=== PATIENT | male | born 1970 | race Caucasian/White ===

== ENCOUNTER 2019-07-16 11:16 | Inpatient (IN) | payer MEDICAID, OTHER ==
[~2019-07-16] VITALS: Ht 180.3 cm; Wt 82.5 kg
[~2019-07-16 11:16] MED LIST: DARU1TAB PO; EMTR1TAB8 PO; LISI-662 PO; LURA40 PO; SULF-168 PO; VALA500T38 PO; VENL-67 PO; VITAMIN D PO
[2019-07-16 11:49] LABS: BASOPHILS % (AUTO) 0.5 % (0.0-2.0); EOSINOPHILS % (AUTO) 2.8 % (1.0-6.0); HEMATOCRIT 43.7 % (41-53); HEMOGLOBIN 14.6 g/dL (13.5-17.5); LYMPHOCYTES # (AUTO) 1.1 K/uL (1.0-4.8); MEAN CORPUSCULAR HEMOGLOBIN 30.4 pg (26.0-34.0); MEAN CORPUSCULAR HGB CONC 33.3 G/dL (31.0-37.0); MEAN CORPUSCULAR VOLUME 91 fL (80-100); MONOCYTES # (AUTO) 0.3 K/uL (0.1-1.0); MONOCYTES % (AUTO) 13.5 % (2.0-9.0); NEUTROPHILS # (AUTO) 0.9 K/uL (1.8-7.7); NEUTROPHILS % (AUTO) 36.2 % (40.0-70.0); PLATELET COUNT (AUTO) 198 K/uL (150-450); RED BLOOD CELL COUNT(AUTO) 4.79 MIL/uL (4.50-5.90); RED CELL DISTRIBUTION WIDTH 14.2 % (11.5-14.5)
[2019-07-16 12:01] LABS: ALANINE AMINOTRANSFERASE 145 U/L (12-78); ALKALINE PHOSPHATASE 53 U/L (46-116); ANION GAP 10 mmol/L (8-16); ASPARTATE AMINOTRANSFERASE 92 U/L (15-37); BILIRUBIN,TOTAL 0.7 mg/dL (0.1-1.0); CALCIUM, TOTAL 9.2 mg/dL (8.8-10.5); CARBON DIOXIDE 26 mmol/L (22-29); CHLORIDE 98 mmol/L (98-107); GLOMERULAR FILTR. RATE CALC > 60 mL/min (>60); GLUCOSE,RANDOM 79 mg/dL (70-110); POTASSIUM 3.7 mmol/L (3.5-5.1); SODIUM SERUM 134 mmol/L (136-145); TOTAL PROTEIN, SERUM 8.1 g/dL (6.4-8.2); UREA NITROGEN, BLOOD 15 mg/dL (7-18)
[2019-07-16 12:22] LABS: AMPHET/METH SCREEN,URINE POSITIVE (NEGATIVE); BARBITURATE SCREEN, URINE NEGATIVE (NEGATIVE); BENZODIAZEPINES SCREEN,URINE NEGATIVE (NEGATIVE); CANNABINOID SCREEN,URINE POSITIVE (NEGATIVE); COCAINE SCREEN,URINE NEGATIVE (NEGATIVE); METHADONE SCREEN, URINE NEGATIVE (NEGATIVE); OPIATE SCREEN,URINE NEGATIVE (NEGATIVE)
[2019-07-16 12:24] LABS: PHENCYCLIDINE SCREEN,URINE NEGATIVE (NEGATIVE)
[2019-07-16 12:36] LABS: APPEARANCE,URINE CLEAR (CLEAR); BILIRUBIN,URINE NEGATIVE (NEGATIVE); GLUCOSE, URINE (UA) NEGATIVE (NEGATIVE); KETONES,URINE NEGATIVE (NEGATIVE); LEUKOCYTE ESTERASE ,URINE NEGATIVE (NEGATIVE); NITRATE,URINE NEGATIVE (NEGATIVE); OCCULT BLOOD,URINE NEGATIVE (NEGATIVE); PROTEIN,URINE NEGATIVE (NEGATIVE)
[2019-07-16] MEDS ORDERED: MAG HYDROX/AL HYDROX/SIMETH ES 30 ML SUSPENSION UDCUP PO PRN (13:15)
[2019-07-16] MEDS ORDERED: GuaiFENesin/D-METHORPHAN [SUGAR-FREE] 200-20MG/10 ML SYRUP UDCUP PO PRN (13:15)
[2019-07-16] MEDS ORDERED: QUEtiapine FUMARATE 100 MG TABLET PO PRN (13:15)
[2019-07-16] MEDS ORDERED: MAGNESIUM HYDROXIDE SUSPENSION 30 ML UDCUP PO PRN (13:15)
[2019-07-16] MEDS ORDERED: PROMETHAZINE HCL 25 MG TABLET PO PRN (13:15)
[2019-07-16] MEDS ORDERED: ACETAMINOPHEN 325 MG TABLET PO PRN (13:15)
[2019-07-16] MEDS ORDERED: HydrOXYzine PAMOATE 50 MG CAPSULE PO PRN (13:15)
[2019-07-16] MEDS ORDERED: LOPERAMIDE HCL 2 MG CAPSULE PO PRN (13:15)
[2019-07-16] MEDS ORDERED: CHOL50004 PO (13:16)
[2019-07-16 20:05] VITALS: BP 153/89
[2019-07-16] MEDS: THIAMINE HCL 100 MG TABLET PO SCH (20:33)
[2019-07-16] MEDS ORDERED: QUEtiapine FUMARATE 100 MG TABLET PO SCH (21:00)
[2019-07-16] MEDS: ZOLPIDEM TARTRATE 10 MG TABLET PO PRN (21:05)
[2019-07-16] MEDS ORDERED: CloNIDine HCL 0.1 MG TABLET PO PRN (22:00)
[2019-07-17] MEDS: DARUNAVIR ETHANOLATE 800 MG TABLET PO SCH (06:44)
[2019-07-17] MEDS ORDERED: VENLAFAXINE HCL 75 MG ER CAPSULE PO SCH (09:00)
[2019-07-17] MEDS: FOLIC ACID 1 MG TABLET PO SCH (09:19)
[2019-07-17] MEDS: THIAMINE HCL 100 MG TABLET PO SCH ×2 (09:19→17:15)
[2019-07-17] MEDS: EMTRICITABINE/TENOFOVIR 200-300 MG TABLET PO SCH (09:19)
[2019-07-17] MEDS: NALTREXONE HCL 50 MG TABLET PO SCH (09:19)
[2019-07-17] MEDS: MULTIVITAMINS WITH MINERALS, THERAPEUTIC TABLET PO SCH (09:20)
[2019-07-17] MEDS: ValACYclovir HCL 500 MG TABLET PO SCH (09:20)
[2019-07-17] MEDS: LISINOPRIL 20 MG TABLET PO SCH (09:22)
[2019-07-17] MEDS: SULFAMETHOX/TRIMETH DS 800-160 MG/TABLET PO SCH (09:22)
[2019-07-17 11:19] LABS: GLUCOMETER DEV NAME(LOC) 3E.I; GLUCOSE,POINT OF CARE 126 MG/DL (70-110)
[2019-07-17 11:55] LABS: CHOL/HDL RATIO 3.9 (4.2-7.3); FREE T4 (FREE THYROXINE) 1.01 ng/dL (0.76-1.46); THYROID STIMULATING HORMONE 0.75 uIU/mL (0.36-3.74)
[2019-07-17] MEDS ORDERED: OLANZapine 5 MG RAPDIS TABLET PO PRN (18:30)
[2019-07-17] MEDS: GABAPENTIN 300 MG CAPSULE PO SCH (21:00)
[2019-07-17] MEDS ORDERED: OLANZapine 5 MG RAPDIS TABLET PO SCH (21:00)
[2019-07-17] MEDS: ZOLPIDEM TARTRATE 10 MG TABLET PO PRN (22:37)
[2019-07-18] MEDS: DARUNAVIR ETHANOLATE 800 MG TABLET PO SCH (06:47)
[2019-07-18 08:50] VITALS: BP 124/68
[2019-07-18] MEDS: GABAPENTIN 300 MG CAPSULE PO SCH ×2 (09:00→13:00)
[2019-07-18] MEDS: NALTREXONE HCL 50 MG TABLET PO SCH (09:00)
[2019-07-18] MEDS: MULTIVITAMINS WITH MINERALS, THERAPEUTIC TABLET PO SCH (09:00)
[2019-07-18] MEDS: THIAMINE HCL 100 MG TABLET PO SCH (09:00)
[2019-07-18] MEDS: EMTRICITABINE/TENOFOVIR 200-300 MG TABLET PO SCH (09:00)
[2019-07-18] MEDS ORDERED: DULoxetine HCL 20 MG CAPSULE PO SCH (09:00)
[2019-07-18] MEDS: SULFAMETHOX/TRIMETH DS 800-160 MG/TABLET PO SCH (09:00)
[2019-07-18] MEDS: LISINOPRIL 20 MG TABLET PO SCH (09:00)
[2019-07-18] MEDS: ValACYclovir HCL 500 MG TABLET PO SCH (09:00)
[2019-07-18] MEDS: FOLIC ACID 1 MG TABLET PO SCH (09:00)
[2019-07-18 17:00] VITALS: BP 133/82
[2019-07-18] MEDS: GABAPENTIN 400 MG CAPSULE PO SCH ×2 (17:03→20:15)
[2019-07-18] MEDS: LORazepam 2 MG TABLET PO PRN (17:03)
[2019-07-18] MEDS ORDERED: THIAMINE HCL 100 MG TABLET PO SCH (21:00)
[2019-07-18] MEDS ORDERED: FOLIC ACID 1 MG TABLET PO SCH (21:00)
[2019-07-18] MEDS ORDERED: NALTREXONE HCL 50 MG TABLET PO SCH (21:00)
[2019-07-18] MEDS ORDERED: MULTIVITAMINS WITH MINERALS, THERAPEUTIC TABLET PO SCH (21:00)
[2019-07-19] MEDS: DARUNAVIR ETHANOLATE 800 MG TABLET PO SCH (06:42)
[2019-07-19] MEDS ORDERED: DULoxetine HCL 20 MG CAPSULE PO SCH ×3 (09:00→21:00)
[2019-07-19 09:50] VITALS: BP 123/74
[2019-07-19] MEDS: GABAPENTIN 400 MG CAPSULE PO SCH ×2 (11:21→13:45)
[2019-07-19] MEDS: LISINOPRIL 20 MG TABLET PO SCH (11:21)
[2019-07-19] MEDS: ValACYclovir HCL 500 MG TABLET PO SCH (11:21)
[2019-07-19] MEDS: EMTRICITABINE/TENOFOVIR 200-300 MG TABLET PO SCH (11:21)
[2019-07-19] MEDS: LORazepam 2 MG TABLET PO PRN (11:21)
[2019-07-19] MEDS: SULFAMETHOX/TRIMETH DS 800-160 MG/TABLET PO SCH (11:22)
[2019-07-19] MEDS ORDERED: DULO20CA30 PO (13:29)
[2019-07-19] MEDS ORDERED: NALT50TA PO (13:29)
[2019-07-19] MEDS ORDERED: GABA-533 PO (13:29)
[2019-07-19] MEDS ORDERED: FOLI1 PO (14:59)
[2019-07-19] MEDS ORDERED: DARU800T PO (14:59)
[2019-07-19] MEDS ORDERED: THIA100T67 PO (14:59)
[2019-07-19] MEDS ORDERED: MULT-1239 PO (14:59)
[2019-07-19] MEDS ORDERED: TRUVT PO (14:59)
== END 2019-07-19 18:12 | disposition home or self-care (01) | DRG 753 ==
LOC: EMS 11:19 → 3EI 19:31
PROVIDERS: ADMIT Psychiatry & Neurology Psychiatry; ATTEND Psychiatry & Neurology Psychiatry
DX: F31.9 Bipolar disorder, unspecified (principal); B20 Human immunodeficiency virus [HIV] disease; D70.9 Neutropenia, unspecified; G62.9 Polyneuropathy, unspecified; B19.20 Unspecified viral hepatitis C without hepatic coma; F12.90 Cannabis use, unspecified, uncomplicated; F15.90 Other stimulant use, unspecified, uncomplicated; I10 Essential (primary) hypertension; Z91.5 Personal history of self-harm; Z59.0 Homelessness; Z82.49 Family history of ischemic heart disease and other diseases of the circulatory system; Z91.19 Patient's noncompliance with other medical treatment and regimen; Z63.9 Problem related to primary support group, unspecified; Z59.9 Problem related to housing and economic circumstances, unspecified; Z65.3 Problems related to other legal circumstances; Z63.5 Disruption of family by separation and divorce
CPT/HCPCS: 84439; 84443; 86592; G0480